=== PATIENT | male | born 1960 | race Caucasian/White ===

== ENCOUNTER 2020-08-26 01:46 | Emergency (ER) | payer BC ==
[2020-08-26 02:25] VITALS: BP 154/98; PULSE 65; TEMP 98; BMI 27.1
[2020-08-26] MEDS ORDERED: amLODIPine BESYLATE 5 MG TABLET (FP) PO ONE (02:39)
[2020-08-26] MEDS ORDERED: amLODIPine BESYLATE 5 MG TABLET (FP) ONE (02:45)
== END 2020-08-26 04:39 | disposition home or self-care (01) ==
LOC: JER 01:46
DX: I10 Essential (primary) hypertension (principal)
CPT/HCPCS: 93005; 93010; 99283-25